=== PATIENT | female | born 1945 | race African-American/Black ===

== ENCOUNTER 2017-03-01 08:16 | Emergency (ER) | payer MEDICARE, OTHER ==
[2017-03-01 08:50] LABS: BASO % 0 % (0-3); EOS % 1 % (0-3); HEMATOCRIT 37.5 % (36.0-47.0); HEMOGLOBIN 12.3 g/dL (12.0-15.5); LYMPH # 0.9 x10^3/uL (1.0-4.8); LYMPH % 10 % (24-48); MEAN CORPUSCULAR HEMOGLOBIN 30 pg (25-35); MEAN CORPUSCULAR HGB CONC 33 g/dL (31-37); MEAN CORPUSCULAR VOLUME 93 fL (79-100); MONO % 4 % (0-9); NEUT % 85 % (31-73); PLATELET COUNT 323 x10^3/uL (140-400); RED BLOOD COUNT 4.05 x10^6/uL (3.50-5.40); RED CELL DISTRIBUTION WIDTH 13.9 % (11.5-14.5); WHITE BLOOD COUNT 8.9 x10^3/uL (4.0-11.0)
[2017-03-01 08:51] LABS: ADD MAN DIFF? YES
[2017-03-01 09:01] LABS: ANION GAP 7 (6-14); BLOOD UREA NITROGEN 14 mg/dL (7-20); BUN/CREATININE RATIO 23 (6-20); CALCIUM 8.2 mg/dL (8.5-10.1); CARBON DIOXIDE 28 mmol/L (21-32); CHLORIDE 104 mmol/L (98-107); CREATININE 0.6 mg/dL (0.6-1.0); GFR 98.8; GLUCOSE 97 mg/dL (70-99); POTASSIUM 3.9 mmol/L (3.5-5.1); SODIUM 139 mmol/L (136-145)
[2017-03-01 09:07] LABS: ALBUMIN 3.3 g/dL (3.4-5.0); ALBUMIN/GLOBULIN RATIO 0.9 (1.0-1.7); ALK PHOS 120 U/L (46-116); ALT (SGPT) 14 U/L (14-59); AST (SGOT) 22 U/L (15-37); TOTAL BILIRUBIN 0.3 mg/dL (0.2-1.0)
[2017-03-01 09:09] LABS: TROPONINI < 0.017 ng/mL (0.000-0.055)
[2017-03-01 09:15] LABS: CKMB MASS 1.7 ng/mL (0.0-3.6); CREATINE KINASE 64 U/L (26-192)
[2017-03-01 10:45] LABS: BARBITURATES NEG (NEG); BENZODIAZEPINES NEG (NEG); CANNABINOIDS NEG (NEG); COCAINE NEG (NEG); METHADONE NEG (NEG); OPIATES NEG (NEG); PHENCYCLIDINE NEG (NEG)
[2017-03-01 11:01] LABS: ETHANOL, URINE NEG (NEG)
[2017-03-01] MEDS ORDERED: CONTRAST GIVEN MC (11:15)
[2017-03-01] MEDS: IOHEXOL 300 MG/ML 100ML VIAL. IV (11:15)
[2017-03-01 11:46] LABS: PLT ESTIMATE ADEQUATE (ADEQUATE)
== END 2017-03-01 13:08 | disposition home or self-care (01) ==
LOC: ER 08:16
DX: R07.89 Other chest pain (principal); M06.9 Rheumatoid arthritis, unspecified; J43.9 Emphysema, unspecified; J84.112 Idiopathic pulmonary fibrosis
CPT/HCPCS: 36415; 71020; 71275; 80053; 80307; 82553; 84484; 85007; 85025; 85379; 93005; 99285-25; Q9967

== ENCOUNTER → 2017-09-20 | Outpatient (CLI) | payer MEDICARE, OTHER | END | disposition home or self-care (01) | LOC: KCIC 11:02 | DX: M06.841 Other specified rheumatoid arthritis, right hand (principal); M06.842 Other specified rheumatoid arthritis, left hand; M81.8 Other osteoporosis without current pathological fracture; M79.89 Other specified soft tissue disorders | CPT/HCPCS: 73130 ==